=== PATIENT | female | born 2000 | race African-American/Black ===

== ENCOUNTER 2020-11-07 13:11 | Outpatient (CLI) | payer MEDICAID, SELFPAY ==
--- NOTE | ~2020-11-07 | US_ITS ---
EXAMINATION: US OB <= 14 weeks fetus DATE: 11/07/2020 13:54 INDICATION: Hemorrhage during first trimester TECHNIQUE: Real-time pelvic ultrasound utilizing both a transvaginal and transabdominal probe was pe rformed. The interpreting radiologist was not present for the study. COMPARISON: None. FINDINGS: The uterus measures 9.7 x 6.9 x 6.2 cm. There is an intrauterine gestational sac. A yolk sac and fet al pole are identified. The crown rump length measures 1.5 cm, which correlates with an estimated ges tational age of 7 weeks and 6 days. heart motion is identified measuring 159 beats per minute ( bpm) by M-mode Doppler. The right ovary measures 3.5 x 1.9 x 1.7 cm. Normal vascular flow with arterial and venous waveforms in the right ovary on color Doppler. The left ovary is not visualized. There is no free fluid in the pelvis. IMPRESSION: 1. Single living fetus with heart rate of 159 bpm. 2. Gestational age by ultrasound of 7 weeks 6 day(s) +/- 5 day(s) with ultrasound estimated date of delivery (NATHALIA) of 06/20/2021. Reviewed, dictated and finalized at location A. IMPRESSION: 1. Single living fetus with heart rate of 159 bpm. 2. Gestational age by ultrasound of 7 weeks 6 day(s) +/- 5 day(s) with ultraso und estimated date of delivery (NATHALIA) of 06/20/2021.
== END 2020-11-07 13:12 | disposition home or self-care (01) ==
PROVIDERS: PCP Obstetrics & Gynecology; Visit Provider Obstetrics & Gynecology
DX: O20.9 Hemorrhage in early pregnancy, unspecified (principal); Z3A.01 Less than 8 weeks gestation of pregnancy
CPT/HCPCS: 36415; 76801; 86850; 86900; 86901

== ENCOUNTER 2020-11-12 06:58 | Emergency (ER) | payer MEDICAID, SELFPAY ==
[2020-11-12 07:02] VITALS: BP 129/71; PULSE 93; RESP 16; TEMP 36.6; O2SAT 100
[2020-11-12 07:08] VITALS: BP 127/73; PULSE 79; RESP 18; TEMP 36.4; O2SAT 100
--- NOTE | 2020-11-12 07:23 | ED.FEMALEGU ---
HPI - Female Genitourinary General Chief complaint: Vaginal Bleeding Stated complaint: cramping/ vaginal bleeding/ 8 weeks Time Seen by Provider: 11/12/20 07:01 History of Present Illness HPI Narrative: Healthy 20 yo female at about 8 weeks gestation presents to the ED for vaginal bleeding. She has had some light spotting intermittently for a couple of weeks. Today it is a bit heavier and associated with intermittent cramping. No clots. pain is mild-moderate. Found out she was on 11/07. She had an US the same day showing normal IUP. Related Data Home Medications Medication Instructions Recorded Confirmed vitamins no.119-iron tablet PO 11/08/20 11/08/20 fumarate 29 mg-folic acid 1 mg tablet Allergies Allergy/AdvReac Type Severity Reaction Status Date / Time No Known Allergies Allergy Unverified 11/12/20 07:16 Review of Systems Review of Systems: All systems reviewed & are unremarkable except as noted in HPI and below Constitutional: Constitutional: Reports no additional constitutional complaints Eyes: Eyes: Reports no additional eye complaints Cardiovascular: Cardiovascular: Reports no additional cardiovascular complaints Respiratory: Respiratory: Reports no additional respiratory complaints Gastrointestinal: Gastrointestinal: Reports no additional gastrointestinal complaints Genitourinary: Genitourinary: Denies hematuria, Denies nocturia and Denies dysuria Musculoskeletal: Musculoskeletal: Reports no additional musculoskeletal complaints Integumentary/Breasts: Skin/Breast: Reports system reviewed and no additional complaints, except as docu Neurologic: Reports system reviewed and no additional complaints, except as documented PMFSH Past Medical History Medical History Anxiety History of chlamydia Surgical History Surgical History No pertinent past surgical history Social History Social History Smoking status: Never smoker Alcohol intake: never Substance use: never Exam Const: General: healthy appearing, no acute distress and alert Nutritional Appearance: well nourished Orientation/consciousness: patient oriented x3 HENMT: Head: normal to inspection Neck: Neck: normal visual inspection Resp: Effort & Inspection: normal respiratory effort Auscultation: clear to auscultation bilaterally, no rales, no rhonchi and no wheezes Cardio: Jugular venous distension: no JVD Rate: regular rate Rhythm: regular rhythm Heart sounds: no murmurs GI: Inspection: non-distended GI Palp: Yes Soft to palpation and No Tenderness to palpation present (GI) Skin: General skin exam: normal color Neuro: General: patient oriented x3, moves all extremities, no focal motor deficits and CN's II-XI intact bilaterally Speech: normal speech Extrem: General: no edema Psych: Appearance: well kempt Affect: normal affect Course Vital Signs Vital signs: Vital Signs Temperature 36.6 C 11/12/20 07:02 Pulse Rate 93 11/12/20 07:02 Respiratory Rate 16 11/12/20 07:02 Blood Pressure 129/71 11/12/20 07:02 Pulse Oximetry 100 11/12/20 07:02 Temperature 36.4 C 11/12/20 07:08 Pulse Rate 79 11/12/20 07:08 Respiratory Rate 18 11/12/20 07:08 Blood Pressure 127/73 11/12/20 07:08 Pulse Oximetry 100 11/12/20 07:08 Procedures Other Procedure Procedure 1: Other Procedure: Bedside US IUP FHR 176 Grossly normal for reported age MDM - Female Genitourinary MDM Narrative Medical decision making narrative: rh positive. IUP with heart activity detected. Dr. Anguiano contacted. She recommends pelvic rest and having the patient call to talk to Dr. Issa on Saturday. Medical Records Attestation: I reviewed the patient's medical records. Lab Data Attestation: I revi
== END 2020-11-12 08:00 | disposition home or self-care (01) ==
PROVIDERS: Emergency Provider Emergency Medicine; PCP Obstetrics & Gynecology
DX: O26.851 Spotting complicating pregnancy, first trimester (principal); Z3A.08 8 weeks gestation of pregnancy
CPT/HCPCS: 99282

== ENCOUNTER 2021-03-24 10:35 | Outpatient (CLI) | payer OTHER, SELFPAY ==
[2021-03-24 18:04] LABS: Basophils Percent Auto 0.2 % (0.2-1.2); Eosinophils Absolute Auto 0.1 K/mm3 (0-0.3); Eosinophils Percent Auto 0.8 % (0-4.4); Hematocrit 34.3 % (37.0-47.0); Hemoglobin 11.4 g/dL (12.0-15.0); Immature Granulocyte Absolute 0.02 K/mm3 (0.00-0.031); Immature Granulocyte Percent A 0.2 % (0-0.5); Lymphocytes Absolute Auto 1.92 K/mm3 (0.9-3.2); Lymphocytes Percent Auto 19.4 % (18.3-44.2); Mean Corpuscular HGB Conc 33.2 g/dl (32-36); Mean Corpuscular Hemoglobin 29.7 pg (26-34); Mean Corpuscular Volume 89.3 fl (80-100); Mean Platelet Volume 10.2 fl (7.4-10.4); Monocytes Absolute Auto 0.5 K/mm3 (0.1-0.6); Monocytes Percent Auto 5.4 % (2.6-8.5); Neutrophils Absolute Auto 7.3 K/mm3 (1.3-6.7); Platelet Count Result 264 k/mm3 (150-375); Red Blood Count 3.84 M/mm3 (4.2-5.4); Red Cell Distribution Width 12.6 % (11.5-14.5); White Blood Count 9.9 K/mm3 (4.5-10.0)
[2021-03-24 18:10] LABS: Glucose 1 Hour PP 50gm Dose 107 mg/dL
== END 2021-03-24 10:36 | disposition home or self-care (01) ==
LOC: ANHBWCLAB 10:36
PROVIDERS: PCP Obstetrics & Gynecology; Visit Provider Student in an Organized Health Care Education/Training Program
DX: Z34.92 Encounter for supervision of normal pregnancy, unspecified, second trimester (principal); Z3A.27 27 weeks gestation of pregnancy
CPT/HCPCS: 36415; 82947; 85025

== ENCOUNTER 2021-05-08 11:56 | Outpatient (CLI) | payer OTHER, SELFPAY ==
[2021-05-08 19:46] LABS: Basophils Percent Auto 0.3 % (0.2-1.2); Eosinophils Absolute Auto 0.3 K/mm3 (0-0.3); Eosinophils Percent Auto 2.6 % (0-4.4); Hematocrit 33.9 % (37.0-47.0); Hemoglobin 11.3 g/dL (12.0-15.0); Immature Granulocyte Absolute 0.07 K/mm3 (0.00-0.031); Immature Granulocyte Percent A 0.6 % (0-0.5); Lymphocytes Absolute Auto 2.21 K/mm3 (0.9-3.2); Mean Corpuscular HGB Conc 33.3 g/dl (32-36); Mean Corpuscular Volume 86.9 fl (80-100); Mean Platelet Volume 9.9 fl (7.4-10.4); Monocytes Absolute Auto 0.9 K/mm3 (0.1-0.6); Neutrophils Absolute Auto 8.8 K/mm3 (1.3-6.7); Neutrophils Percent Auto 71.5 % (45.5-73.1); Platelet Count Result 272 k/mm3 (150-375); Red Cell Distribution Width 13.2 % (11.5-14.5); White Blood Count 12.3 K/mm3 (4.5-10.0)
[2021-05-08 20:43] LABS: HIV 1/2 Ab P24 Ag Result Negative (Negative)
[2021-05-09 15:09] LABS: Rapid Plasma Reagin Non-Reactive (NonReactive)
== END 2021-05-08 11:57 | disposition home or self-care (01) ==
PROVIDERS: PCP Obstetrics & Gynecology; Visit Provider Obstetrics & Gynecology
DX: Z34.90 Encounter for supervision of normal pregnancy, unspecified, unspecified trimester (principal); Z3A.00 Weeks of gestation of pregnancy not specified
CPT/HCPCS: 36415; 85025; 86592; 86703; G0432

== ENCOUNTER 2021-06-13 05:20 | Inpatient (IN) | payer OTHER, SELFPAY ==
[2021-06-13] VITALS (22 sets, daily range): BP systolic 103–134; BP diastolic 59–94; PULSE 71–112; RESP 16; TEMP 36.1–37.2; O2SAT 92–100; BMI 28.6
--- NOTE | 2021-06-13 05:54 | LDADM ---
This patient, Adina Vale, was admitted to Labor/Delivery/Recovery 105 on 06/13/21 at 05:20. Plans for labor, pain management and were discussed with patient. Patient/family oriented to hospital policies and general routines including ID bracelet, bed and alarms, visiting hours, pain management, procedures, bathroom and other care routines, personal items, smoking policy, room service/diet and guest tray routines, infant security routines, and visiting hours. Patient/Family are encouraged to report perceived risks to care and to ask questions if they do not understand what they are told or what they should do. See OBIX for further documentation.
[2021-06-13 05:56] LABS: Basophils Absolute Auto 0.1 K/mm3 (0.0-0.1); Basophils Percent Auto 0.4 % (0.2-1.2); Eosinophils Absolute Auto 0.1 K/mm3 (0-0.3); Eosinophils Percent Auto 0.6 % (0-4.4); Hematocrit 36.9 % (37.0-47.0); Hemoglobin 12.7 g/dL (12.0-15.0); Immature Granulocyte Absolute 0.07 K/mm3 (0.00-0.031); Immature Granulocyte Percent A 0.5 % (0-0.5); Lymphocytes Absolute Auto 2.47 K/mm3 (0.9-3.2); Mean Corpuscular HGB Conc 34.4 g/dl (32-36); Mean Corpuscular Hemoglobin 28.2 pg (26-34); Mean Platelet Volume 9.4 fl (7.4-10.4); Monocytes Absolute Auto 0.8 K/mm3 (0.1-0.6); Monocytes Percent Auto 6.2 % (2.6-8.5); Neutrophils Absolute Auto 9.5 K/mm3 (1.3-6.7); Neutrophils Percent Auto 73.3 % (45.5-73.1); Platelet Count Result 286 k/mm3 (150-375); Red Cell Distribution Width 12.9 % (11.5-14.5)
--- NOTE | 2021-06-13 07:49 | PM.IMHP ---
H&P: HPI History of Present Illness Date/Time: 06/13/21 07:49 39 weeks by LMP 11/07/20 edc 06/18/21 c/w a 7week U/S. Patient presented this am in active labor. Cervix was 6cm, regular ctx. PNC uncomplicated. Labs reviewed. GBS neg. Chief Complaint: Contractions. Review of Systems Review of Systems: All systems reviewed & are unremarkable except as noted in HPI and below Constitutional: Constitutional: Reports no additional constitutional complaints and Denies headache(s) Eyes: Eyes: Denies spots in vision ENT: Reports system reviewed and no additional complaints, except as documented and Denies headache(s) Cardiovascular: Cardiovascular: Denies chest pain and Denies dyspnea Respiratory: Respiratory: Denies dyspnea Gastrointestinal: Gastrointestinal: Reports no additional gastrointestinal complaints Genitourinary: Genitourinary: Reports amenorrhea Musculoskeletal: Musculoskeletal: Reports no additional musculoskeletal complaints Integumentary/Breasts: Skin/Breast: Denies breast mass and Denies rash Neurologic: Denies headache(s) Psychiatric: Psychiatric: Reports no additional psychiatric complaints [facility] Past Medical History Medical History Anxiety History of chlamydia Surgical History Surgical History No pertinent past surgical history Family History Family History Other No pertinent family history Social History Social History Smoking status: Never smoker Alcohol intake: never Substance use: never Spiritual care concerns: No Meds Home Medications and Allergies Home Medications Medication Instructions Recorded Confirmed Type vitamins no.119-iron 1 tablet PO DAILY 11/08/20 06/12/21 History fumarate 29 mg-folic acid 1 mg tablet Allergies Allergy/AdvReac Type Severity Reaction Status Date / Time No Known Allergies Allergy Verified 06/12/21 13:20 Vital Signs Vital Signs - 24 hr 06/13/21 05:45 06/13/21 06:01 06/13/21 06:16 Temperature Pulse Rate 98 76 91 Blood Pressure 131/76 134/86 131/76 06/13/21 06:31 06/13/21 07:05 Temperature 98 F Pulse Rate 99 Blood Pressure 123/79 Exam Const: General: no acute distress Eyes: General: appearance normal, both eyes and all related structures Resp: Effort & Inspection: normal respiratory effort Cardio: Rate: regular rate GI: Other: Gravid no fundal tenderness no right upper quadrant pain : External Female Exam: normal external appearance Speculum Exam - Vagina: normal appearance of the vagina Other: cervix 5-6/75/-1 Skin: General skin exam: no rashes or lesions noted Neuro: Cognition (Neuro): normal cognition Extrem: General: normal to inspection Psych: Mental Status: mental status grossly normal H&P: Results Labs Labs: Short CBC 06/13/21 Range/Units 05:47 WBC 13.0 H (4.5-10.0) K/mm3 Hgb 12.7 (12.0-15.0) g/dL Hct 36.9 L (37.0-47.0) % Plt Count 286 (150-375) k/mm3 Assessment and Plan Assessment and plan (1) Active labor: Status: Acute Assessment and Plan: Admit. Expectant management. Anticipate vaginal delivery.
--- NOTE | 2021-06-13 07:53 | P.PNOB_ITS ---
OB - PN: Subj Subjective Date/time seen: 06/13/21 07:53 Patient evaluated at 0700. Cat 1 tracing. FHT 140 cervix .5/75/-2 AROM clear. Continue expectant management. OB - PN: Obj Data Labs CBC & Chem 7: 06/13/21 05:47 Labs: Laboratory Results - last 24 hr 06/13/21 06/13/21 05:47 05:47 WBC 13.0 H RBC 4.50 Hgb 12.7 Hct 36.9 L MCV 82.0 MCH 28.2 MCHC 34.4 RDW 12.9 Plt Count 286 MPV 9.4 Immature Gran % (Auto) 0.5 Neut % (Auto) 73.3 H Lymph % (Auto) 19.0 [place] % (Auto) 6.2 Eos % (Auto) 0.6 Baso % (Auto) 0.4 Lymph # (Auto) 2.47 [place] # (Auto) 0.8 H Eos # (Auto) 0.1 Baso # (Auto) 0.1 Abs Immat Gran (auto) 0.07 H Absolute Neuts (auto) 9.5 H Absolute Nucleated RBC 0.0 Nucleated RBC % 0.0 Blood Type B Positive Antibody Screen Negative OB - PN A/P Time Spent With Patient Time: Total time spent is greater than 50% in coordination of care (as documented) at patient's floor/unit and/or counseling patient:
[2021-06-13 10:52] LABS: Rapid Plasma Reagin Non-Reactive (NonReactive)
[2021-06-13] MEDS: LACTATED RINGERS 1,000 ML 125 ML IV CONT (10:56)
[2021-06-13] MEDS: OXYTOCIN 30 UNITS/NS 500 ML 30 UNITS/500 ML BAG 999 UNITS IV CONT (11:25)
--- NOTE | 2021-06-13 12:23 | PM.OBPRVD ---
OB - Delivery Note Procedure Delivery date: 06/13/21 Procedure: Spontaneous vaginal delivery Intrapartal events: Deceleration ( variable) Induction method: none Delivery augmentation: rupture of membranes Delivery monitor: external FHT Route of delivery: Laceration Description: Labial ( left superior labia majora) Delivery repair: vicryl ( 3. 0) Specimen: No Quantitative Blood Loss (ml): 150 Anesthesia type: Local Disposition: floor Complications: none Narrative: Patient admitted in active labor. She had assisted rupture of membranes. She progressed to complete. Her tracing significant for having mild to moderate variables non repetitive moderate variability. She pushed for approximately 15 minutes and delivered a female with there was a tight nuchal cord which was surgically reduced placed on maternal abdomen and then taken to the warmer. Baby Date of : 06/13/21 Time of : 11:19 Weeks of gestation at delivery: 39 gender: Female Weight (pounds): 5 Weight (ounces): 15 presentation: vertex position: Left Occiput Anterior Placenta delivery description: Spontaneous cord vessel description: 3 Vessels, Nuchal Cord and Tight score one minute: 4 score five minutes: 8
[2021-06-13] MEDS: WITCH HAZEL 40 PADS 1 PAD TOPICAL (13:38)
[2021-06-13] MEDS: BENZOCAINE 20% AER SPR (*SP) 56 GM CAN 1 SPRAY TOPICAL (13:39)
--- NOTE | 2021-06-13 14:30 | PC.NURSE ---
Patient transferred to post room #281 via 1430. Support person present. Oriented to unit, room, information board, rooming in, admission packet and security measures. Patient verbalizes understanding.
--- NOTE | 2021-06-13 15:00 | PC.NURSE ---
Mother called out for assist with feeding, reporting eagerly fed for first feeding. is able to freely thrust tongue past gum ridge and flange both lips. Skin is intact on both nipples, no redness and bruising noted. Reviewed feeding cues, frequencies, duration of feedings, feeding elimination flow sheet, and signs of adequate intake. Demonstrated stimulation techniques to wake for feeding. Assisted with to breast. Reviewed positioning/alignment in cross cradle, holding breast in ?U? hold and guided asymmetrical latch on. Reviewed rational for each. Infant able to latch correctly within a few attempts. nursed eagerly with steady draws and frequent swallowing noted, some pausing noted. Reviewed signs of a correct latch, effective nursing and suck swallow ratio. Suggested mother stimulate while feeding to increase stimulate, increase intake and to assist with maintaining deep latch. Infant would slip to shallow latch causing tenderness. Demonstrated how to adjust latch more deeply while feeding if needed. Mother reports she can feel the difference in latch with no tenderness. Nipple care reviewed of lanolin after feedings, warm compresses as needed. Instructed mother to call out for RN assistance if she is unable to latch infant for feeding or she has discomfort with nursing. Instructed feeding should be initiated three hours from start of last feeding or if feeding cues are noted before. Mother voiced understanding of information shared.
[2021-06-14 05:07] LABS: Hematocrit 34.2 % (37.0-47.0); Hemoglobin 11.3 g/dL (12.0-15.0)
[2021-06-14 06:45] VITALS: BP 117/73; PULSE 73; RESP 19; TEMP 36.2
[2021-06-14] MEDS: MULTIVIT/MIN/PREN/FOL AC/IRON TABLET 1 TAB PO (09:27)
--- NOTE | 2021-06-14 09:40 | PC.NURSE ---
Mother called out for assist with feeding, reporting has been eagerly feeding and is now sleepy. is able to freely thrust tongue past gum ridge and flange both lips. Skin is intact on both nipples, no redness and bruising noted. Reviewed feeding cues, frequencies, duration of feedings, feeding elimination flow sheet, and signs of adequate intake. Demonstrated stimulation techniques to wake infant for feeding. Assisted with infant to breast. Reviewed positioning/alignment in cross cradle, holding breast in ?U? hold and guided asymmetrical latch on. Reviewed rational for each. Infant able to latch correctly within a few attempts. Infant nursed eagerly with steady draws and occasional/frequent swallowing noted, some pausing noted. Reviewed signs of a correct latch, effective nursing and suck swallow ratio. Suggested mother stimulate while feeding to increase stimulate, increase intake and to assist with maintaining deep latch. Infant would slip to shallow latch causing tenderness. Demonstrated how to adjust latch more deeply while feeding if needed. Mother reports she can feel the difference in latch with no tenderness. Nipple care reviewed of lanolin after feedings, warm compresses as needed, gel pads provided and reviewed care and cleaning. Instructed mother to call out for RN assistance if she is unable to latch infant for feeding or she has discomfort with nursing. Instructed feeding should be initiated three hours from start of last feeding or if feeding cues are noted before. Mother voiced understanding of information shared.
--- NOTE | 2021-06-14 13:08 | PM.OBPNVD ---
OB - PN: Subj Subjective Date/time seen: 06/14/21 13:08 Denies pain. She wants to go home today if she and baby are allowed. Patient comments: pain well controlled, tolerating diet and other (Decreasing lochia.) [place] baby status: doing well and nursing well [place] feeding status: exclusively breast feeding OB - PN: Obj Data Labs CBC & Chem 7: 06/14/21 02:20 Labs: Laboratory Results - last 24 hr 06/14/21 02:20 Hgb 11.3 L Hct 34.2 L OB - PN A/P Plan day: 1 Plan: routine care Comments: Patient doing well. Will allow discharge when baby ready. Discussed discharge precautions. Time Spent With Patient Time: Total time spent is greater than 50% in coordination of care (as documented) at patient's floor/unit and/or counseling patient: Exam Const: General: cooperative, comfortable and no acute distress Eyes: General: appearance normal, both eyes and all related structures Resp: Effort & Inspection: normal respiratory effort Psych: Affect: normal affect Other: Abd: fundus firm below umbilicus, nontender Perineum: healing, labia healing well Ext: nontender
--- NOTE | 2021-06-14 13:14 | PM.DS ---
DS: Admitting Diagnosis Discharge Date June 14, 2021 Admitting Diagnosis active labor DS: Discharge Diagnosis Discharge Diagnosis (1) Active labor: Status: Acute (2) Delivery normal: Code(s): O80 - Encounter for full-term uncomplicated delivery Status: Acute DS: Summary Hospital Course Reason for hospitalization: active labor Hospital Course: patient admitted on 06/13 in active labor. She had subsequent assisted rupture of membranes. She progressed to completely dilated and had a vaginal delivery. She sustained a right labial laceration which was repaired. On day 1 she was doing well. Did not have any significant pain. Baby was nursing well. She requested to go home today. Her lochia was decreasing. Minimal lochia on her pad. Discharge precautions discussed. Status at Discharge Functional status at discharge: independent ambulation Time Spent with Patient Time attestation: Total time spent providing and/or coordinating discharge services: Exam Const: General: cooperative Orientation/consciousness: oriented to person, oriented to place and oriented to time HENMT: General nose exam: Normal external nose present Eyes: General: appearance normal, both eyes and all related structures Resp: Effort & Inspection: normal respiratory effort GI: Inspection: normal to inspection : Other: Fundus minus 6 umbilicus nontender and firm Skin: General skin exam: normal color Neuro: General: oriented to person, oriented to place and oriented to time Extrem: General: normal to inspection and no calf tenderness Psych: Appearance: grossly normal Mental Status: mental status grossly normal DS: Data Data Completed and Pending Labs on day of discharge: Labs from last 24 hours 06/14/21 02:20 Hgb 11.3 L Hct 34.2 L Discharge Plan Discharge Attending physician on discharge: Lucius Issa Discharging Clinician: Lucius Issa Anticipated Discharge Date/Time: 06/14/21 13:12 Patient Disposition: Home, Self-Care Activity: may shower, no straining and pelvic rest Diet: regular Discharge Instructions: Education: Mom and Baby Guide Given to: Mother Follow-Up: Call your delivering provider's office for an appointment to be seen in: Call office for appointment Mom and baby should come to the [facility] for the follow-up appointment. Appointment Date/Time: June 15, 2021 at 12:30 pm What to expect at your follow-up visit: Physical Assessment Call [phone] if you are unable to keep your appointment time. BREAST CARE: * Wear a snug supportive bra. * For engorgement discomfort: Breast Feeding: * Apply warm moist washcloths * Express milk as needed to relieve engorgement * Wear loose clothing * For sore nipples: * Identify correct latch-on * Apply warm moist washcloths before and after nursing * Air dry nipples after nursing * May apply Lansinoh cream to nipples PERINEAL CARE: * Until bleeding stops, use your lynda bottle after urinating * Change your pad frequently throughout the day * You may take sitz baths several times a day (fill your bathtub with warm water and soak for 20 minutes.) Do NOT bathe in the water * No tub baths until seen by your physician - You may shower ACTIVITY: * Rest as much as possible. * Do not exercise or lift anything heavier than your baby (such as laundry or other children.) * Avoid stairs or driving as much as possible. * Do not put anything into the vagina. No douching, tampons, or sexual activity until seen by physician. NOTIFY PHYSICIAN IF YOU HAVE ANY QUESTIONS OR IF ANY OF THE FOLLOWING SYMPTOMS OCCUR: * If your perineum becomes red, swollen, or more painful than what you have experienced in the hospital. * If your vaginal bleeding becomes foul smelling. * If your vaginal bleeding becomes more heavy than a period or if your bl
[2021-06-15 12:53] VITALS: BP 113/65; PULSE 87; RESP 20; TEMP 36.9; O2SAT 100
== END 2021-06-14 14:50 | disposition home or self-care (01) | DRG 560 ==
LOC: ANHLDR 05:39 → ANHOB2 14:31
PROVIDERS: Admitting Provider Obstetrics & Gynecology; Visit Provider Obstetrics & Gynecology
DX: O76 Abnormality in fetal heart rate and rhythm complicating labor and delivery (principal); O70.0 First degree perineal laceration during delivery; O69.1XX0 Labor and delivery complicated by cord around neck, with compression, not applicable or unspecified; Z3A.39 39 weeks gestation of pregnancy; Z37.0 Single live birth
CPT/HCPCS: 36415; 85014; 85018; 85025; 86592; 86850; 86900; 86901; A9270; J2590; J7120

== ENCOUNTER 2023-10-23 11:51 | Outpatient (CLI) | payer MEDICAID, SELFPAY ==
[2023-10-23 12:47] LABS: Beta HCG Quantitative < 2.39 mIU/ML
== END 2023-10-23 11:52 | disposition home or self-care (01) ==
LOC: ANHLAB 11:52
PROVIDERS: Visit Provider Student in an Organized Health Care Education/Training Program
DX: N92.6 Irregular menstruation, unspecified (principal)
CPT/HCPCS: 36415; 84702